=== PATIENT | female | born 1985 | race African-American/Black ===

== ENCOUNTER 2017-11-05 12:41 | Emergency (ER) | payer OTHER ==
[~2017-11-05] VITALS: Ht 152.4 cm; Wt 53.5 kg
[~2017-11-05 12:41] MED LIST: LEVSIN/SL0.125 MG PO; PROTONIX20 MG PO; TOBREX5 ML OP
== END 2017-11-05 19:15 | disposition home or self-care (01) ==
LOC: ER 12:41
DX: K08.89 Other specified disorders of teeth and supporting structures (principal)

== ENCOUNTER 2018-04-09 11:20 | Emergency (ER) | payer OTHER ==
[~2018-04-09] VITALS: Ht 152.4 cm; Wt 50.8 kg
== END 2018-04-09 19:09 | disposition home or self-care (01) ==
LOC: ER 11:20
DX: K52.9 Noninfective gastroenteritis and colitis, unspecified (principal); D50.9 Iron deficiency anemia, unspecified

== ENCOUNTER 2018-07-16 13:40 | Emergency (ER) | payer OTHER ==
[~2018-07-16] VITALS: Ht 177.8 cm; Wt 57.2 kg
== END 2018-07-16 19:55 | disposition home or self-care (01) ==
LOC: ER 13:40
DX: R53.1 Weakness (principal); D64.9 Anemia, unspecified

== ENCOUNTER 2020-01-04 14:19 | Emergency (ER) | payer OTHER ==
[~2020-01-04] VITALS: Ht 152.4 cm; Wt 56.2 kg
== END 2020-01-04 18:57 | disposition home or self-care (01) ==
LOC: ER 14:19
DX: D64.89 Other specified anemias (principal); R42 Dizziness and giddiness

== ENCOUNTER 2020-01-07 06:46 | Outpatient (CLI) | payer OTHER | END 2020-01-07 06:53 | disposition home or self-care (01) | LOC: LAB 06:46 | PROVIDERS: ATTEND Obstetrics & Gynecology Gynecology | DX: R10.2 Pelvic and perineal pain (principal); N30.00 Acute cystitis without hematuria; N30.01 Acute cystitis with hematuria; E11.9 Type 2 diabetes mellitus without complications; N95.1 Menopausal and female climacteric states; E78.2 Mixed hyperlipidemia; K62.5 Hemorrhage of anus and rectum ==

== ENCOUNTER 2020-01-07 07:14 | Outpatient (CLI) | payer OTHER | END 2020-01-07 07:23 | disposition home or self-care (01) | LOC: SONOGRAMA 07:14 → MAMO-SONO 08:15 | PROVIDERS: ATTEND Obstetrics & Gynecology Gynecology | DX: R10.2 Pelvic and perineal pain (principal); N63.10 Unspecified lump in the right breast, unspecified quadrant; N63.20 Unspecified lump in the left breast, unspecified quadrant ==

== ENCOUNTER 2020-08-26 08:00 | Outpatient (CLI) | payer OTHER | END 2020-08-26 08:30 | disposition home or self-care (01) | LOC: PPH VACUNA 08:00 | DX: Z23 Encounter for immunization (principal) ==

== ENCOUNTER 2020-09-16 08:00 | Outpatient (CLI) | payer OTHER | END 2020-09-16 08:30 | disposition home or self-care (01) | LOC: PPH VACUNA 08:00 | DX: Z23 Encounter for immunization (principal) ==